=== PATIENT | male | born 1960 | race Caucasian/White ===

== ENCOUNTER 2017-06-18 05:39 | Emergency (ER) | payer OTHER ==
[~2017-06-18] VITALS: Ht 185.4 cm; Wt 83.9 kg
[~2017-06-18 05:39] MED LIST: APRE30TA2 PO; IBUP200C76 PO
--- NOTE | 2017-06-18 05:50 | NUR ---
DR. DENNIS AT BEDSIDE FOR MSE.
--- NOTE | 2017-06-18 05:58 | NUR ---
Patient discharged to home in stable conditon. Written and verbal after care instructions given. Patient verbalizes understanding of instructions. PATIENT LEFT WITH STABLE GAIT.
[2017-06-18 05:59] VITALS: BP 130/78
== END 2017-06-18 06:00 | disposition home or self-care (01) ==
LOC: ER 05:46
DX: J02.9 Acute pharyngitis, unspecified (principal); Z79.899 Other long term (current) drug therapy
CPT/HCPCS: 99283; A4663

== ENCOUNTER 2018-02-26 19:31 | Emergency (ER) | payer OTHER ==
[~2018-02-26] VITALS: Ht 185.4 cm; Wt 85.3 kg
--- NOTE | 2018-02-26 19:45 | NUR ---
Pt provided urine sample, sent to lab.
--- NOTE | 2018-02-26 19:46 | NUR ---
Dr. Dale at bedside for MSE.
[2018-02-26 19:53] LABS: *BILIRUBIN,URIN NEGATIVE (NEGATIVE); *BLOOD, URINE NEGATIVE (NEGATIVE); *CLARITY,URINE CLEAR (CLEAR); *COLOR,URINE YELLOW (YELLOW); *KETONES,URINE NEGATIVE (NEGATIVE); *PROTEIN,URINE NEGATIVE (NEGATIVE); *UROBILINOGEN,URINE 0.2 E.U./dl (NORMAL); LEUKOCYTE ESTERASE ,URINE NEGATIVE (NEGATIVE); NITRITE, URINE NEGATIVE (NEGATIVE); PH,URINE 5.5 (5.0-8.0); UGLUCOSE NEGATIVE (NEGATIVE)
[2018-02-26 19:59] LABS: MUCUS,URINE FEW /LPF (0-FEW); WBC,URINE 0-3 /HPF (0-3)
[2018-02-26] MEDS ORDERED: AZITHROMYCIN 250 MG TABLET ONE (20:15)
[2018-02-26] MEDS ORDERED: ONDANSETRON ODT 4 MG TAB.RAPDIS SL ONE (20:15)
[2018-02-26] MEDS ORDERED: CEFTRIAXONE 500 MG VIAL IM ONE (20:15)
[2018-02-26] MEDS ORDERED: AZITHROMYCIN 250 MG TABLET PO ONE (20:15)
[2018-02-26] MEDS ORDERED: CEFTRIAXONE 500 MG VIAL ONE (20:15)
[2018-02-26] MEDS ORDERED: LIDOCAINE 1%-EPI 1:100,000 20 ML VIAL ONE (20:16)
[2018-02-26] MEDS ORDERED: ONDANSETRON ODT 4 MG TAB.RAPDIS ONE (20:16)
--- NOTE | 2018-02-26 20:23 | NUR ---
Patient discharged to home in stable conditon. Written and verbal after care instructions given. Patient verbalizes understanding of instructions. Pt ambulated out of ER with steady gait, no acute signs of distress, VSS, all belongings taken.
[2018-02-26 20:24] VITALS: BP 110/79
== END 2018-02-26 20:25 | disposition home or self-care (01) ==
LOC: ER 19:33
DX: N48.89 Other specified disorders of penis (principal); Z79.1 Long term (current) use of non-steroidal anti-inflammatories (NSAID); Z79.899 Other long term (current) drug therapy
CPT/HCPCS: 87086; A4663; J0696; J3490; Q0144; Q0162

== ENCOUNTER 2018-11-09 22:02 | Emergency (ER) | payer OTHER ==
[~2018-11-09] VITALS: Ht 177.8 cm; Wt 82.6 kg
[~2018-11-09 22:02] MED LIST changes: +IBUP-2413 PO; -IBUP200C76 PO
--- NOTE | 2018-11-09 23:04 | NUR ---
Pt bib self, A/0x4 and is able to verbalize complaints. Pt started having pain digit II of LLE. C/o pain PS 05/07. Pt ADL's affected due to the pain/swelling. Skin of digit II LLE is intact no tear, just red and some inflammation.
--- NOTE | 2018-11-09 23:39 | NUR ---
Xray at bedside.
[2018-11-10] MEDS ORDERED: MUPIROCIN 2% OINT 22 GM TUBE ONE (00:08)
[2018-11-10] MEDS ORDERED: MUPIROCIN 2% OINT 22 GM TUBE TP ONE (00:15)
--- NOTE | 2018-11-10 00:24 | NUR ---
Patient discharged to home in stable conditon. Written and verbal after care instructions given. Patient verbalizes understanding of instructions. Pt ambulated out of ER in steady gait. All belongings with pt. VS. NAD noted.
[2018-11-10 00:26] VITALS: BP 110/70
== END 2018-11-10 00:27 | disposition home or self-care (01) ==
LOC: ER 22:02
DX: L03.032 Cellulitis of left toe (principal); Z79.1 Long term (current) use of non-steroidal anti-inflammatories (NSAID); Z79.899 Other long term (current) drug therapy
CPT/HCPCS: 73660; A4663

== ENCOUNTER 2019-07-10 05:24 | Emergency (ER) | payer OTHER ==
[~2019-07-10] VITALS: Ht 185.4 cm; Wt 82.6 kg
--- NOTE | 2019-07-10 05:55 | NUR ---
PT WAS AMBULATORY W/ STABLE GAIT ABLE TO VOID FREELY AND PROVIDE URINE SAMPLE [employer] AT BEDSIDE AFTERWARDS
[2019-07-10 06:33] LABS: *BILIRUBIN,URIN NEGATIVE (NEGATIVE); *BLOOD, URINE NEGATIVE (NEGATIVE); *CLARITY,URINE CLEAR (CLEAR); *COLOR,URINE DARK YELLOW (YELLOW); *KETONES,URINE NEGATIVE (NEGATIVE); *UROBILINOGEN,URINE 0.2 E.U./dl (NORMAL); LEUKOCYTE ESTERASE ,URINE NEGATIVE (NEGATIVE); NITRITE, URINE POSITIVE (NEGATIVE); UGLUCOSE NEGATIVE (NEGATIVE)
[2019-07-10 06:45] LABS: RBC,URINE 0-3 /HPF (0-3); SQUAMOUS EPITHELIAL CELL,UR NONE SEEN /HPF (NONE SEEN); WBC,URINE 0-3 /HPF (0-3)
[2019-07-10 06:46] LABS: BACTERIA,URINE NONE SEEN /HPF (NONE SEEN)
--- NOTE | 2019-07-10 06:56 | NUR ---
Patient discharged to home in stable conditon. Written and verbal after care instructions given. Patient verbalizes understanding of instructions. AMBULATORY W/ STABLE GAIT ALL BELONGINGS W/ PT
[2019-07-10 06:57] VITALS: BP 125/86
== END 2019-07-10 06:58 | disposition home or self-care (01) ==
LOC: ER 05:26
DX: R30.0 Dysuria (principal); R05 Cough; J02.9 Acute pharyngitis, unspecified; J34.89 Other specified disorders of nose and nasal sinuses; Z79.1 Long term (current) use of non-steroidal anti-inflammatories (NSAID); Z79.899 Other long term (current) drug therapy
CPT/HCPCS: 71045; 87086

== ENCOUNTER 2019-08-14 20:25 | Emergency (ER) | payer OTHER ==
[~2019-08-14] VITALS: Ht 185.4 cm; Wt 82.1 kg
--- NOTE | 2019-08-14 20:35 | NUR ---
Patient arrived at the ER with chief complaint of multiple rashes on his back, jade. upper arm and right posterior thigh x 5days. Per patient he stayed in a hotel last Thursday and notice the rashes on Thursday. Rashes are reddened and raised in appearance. Patient c/o of itching on affected area. Had used Calamine lotion which was effective.
--- NOTE | 2019-08-14 21:00 | NUR ---
Dr. Blackwell on bedside for MSE.
--- NOTE | 2019-08-14 21:15 | NUR ---
Patient discharged to home in stable conditon. Written and verbal after care instructions given. Patient verbalizes understanding of instructions. Pt ambulated out of the ER with steady gait. All belongings with pt.
[2019-08-14 21:22] VITALS: BP 109/69
== END 2019-08-14 21:15 | disposition home or self-care (01) ==
LOC: ER 20:26
DX: S30.860A Insect bite (nonvenomous) of lower back and pelvis, initial encounter (principal); Z79.1 Long term (current) use of non-steroidal anti-inflammatories (NSAID); Z79.899 Other long term (current) drug therapy; W57.XXXA Bitten or stung by nonvenomous insect and other nonvenomous arthropods, initial encounter; Y93.89 Activity, other specified; Y92.89 Other specified places as the place of occurrence of the external cause; Y99.8 Other external cause status
CPT/HCPCS: A4663

== ENCOUNTER 2019-08-19 16:12 | Emergency (ER) | payer OTHER ==
[~2019-08-19] VITALS: Ht 185.4 cm; Wt 81.6 kg
--- NOTE | 2019-08-19 16:36 | NUR ---
PATIENT WAS SEEN BY . DC, RX AND FOLLOW UP INSTRUCTIONS GIVEN AND EXPLAINED TO PATIENT WHO STATES SHE UNDERSTANDS ALL INSTRUCTIONS.
== END 2019-08-19 17:48 | disposition home or self-care (01) ==
LOC: ER 16:15
DX: H10.89 Other conjunctivitis (principal); B96.89 Other specified bacterial agents as the cause of diseases classified elsewhere; L03.213 Periorbital cellulitis; Z79.1 Long term (current) use of non-steroidal anti-inflammatories (NSAID)
CPT/HCPCS: A4663

== ENCOUNTER 2019-10-22 04:23 | Emergency (ER) | payer OTHER ==
[~2019-10-22] VITALS: Ht 185.4 cm; Wt 81.6 kg
--- NOTE | 2019-10-22 04:34 | NUR ---
Dr. Simons at bedside for MSE.
[2019-10-22 05:10] VITALS: BP 117/81
== END 2019-10-22 05:10 | disposition home or self-care (01) ==
LOC: ER 04:23
DX: B34.9 Viral infection, unspecified (principal); Z79.1 Long term (current) use of non-steroidal anti-inflammatories (NSAID); Z79.899 Other long term (current) drug therapy
CPT/HCPCS: 87400; A4663

== ENCOUNTER 2022-01-31 05:56 | Emergency (ER) | payer OTHER ==
[~2022-01-31] VITALS: Ht 185.4 cm; Wt 83.5 kg
--- NOTE | 2022-01-31 06:30 | NUR ---
Patient walked into ER c/o dysuria that started last night. Patient is A/Ox4, not in distress.
[2022-01-31 07:06] LABS: HEMATOCRIT 41.9 % (36.7-47.1); MEAN CORPUSCULAR HEMOGLOBIN 31.9 uug (23.8-33.4); MEAN CORPUSCULAR VOLUME 92.7 fL (73.0-96.2); PLATELET COUNT (AUTO) 286 K/uL (152-348)
[2022-01-31 07:08] LABS: POTASSIUM 4.6 mmol/L (3.5-5.1)
[2022-01-31 07:11] LABS: *BILIRUBIN,URIN NEGATIVE (NEGATIVE); *BLOOD, URINE NEGATIVE (NEGATIVE); *CLARITY,URINE CLEAR (CLEAR); *COLOR,URINE YELLOW (YELLOW); *KETONES,URINE NEGATIVE (NEGATIVE); *UROBILINOGEN,URINE 0.2 E.U./dl (NORMAL); LEUKOCYTE ESTERASE ,URINE NEGATIVE (NEGATIVE); UGLUCOSE NEGATIVE (NEGATIVE)
[2022-01-31 07:18] LABS: NITRITE, URINE NEGATIVE (NEGATIVE)
[2022-01-31] MEDS ORDERED: DOXY-326 PO (07:28)
[2022-01-31] MEDS ORDERED: CEFTRIAXONE 500 MG VIAL IM ONE (07:30)
[2022-01-31] MEDS ORDERED: CEFTRIAXONE 500 MG VIAL ONE (07:30)
[2022-01-31] MEDS ORDERED: LIDOCAINE HCL 1% 20 ML VIAL ONE (07:31)
[2022-01-31] MEDS ORDERED: PHEN-704 PO (07:32)
[2022-01-31] MEDS ORDERED: PHEN-705 PO (07:32)
--- NOTE | 2022-01-31 07:38 | NUR ---
PT WAS D/C'd TO HOME. D/C INSTRUCTIONS GIVEN TO THE PT BY DR CHONG.
[2022-01-31 07:39] VITALS: BP 135/79
== END 2022-01-31 07:40 | disposition home or self-care (01) ==
LOC: ER 06:00
DX: R30.0 Dysuria (principal); N34.2 Other urethritis; R03.0 Elevated blood-pressure reading, without diagnosis of hypertension
CPT/HCPCS: 36415; 80048; 81003; 85025; 87086; 96372; 99283; J0696; J3490; A4663

== ENCOUNTER 2022-03-16 14:02 | Emergency (ER) | payer OTHER ==
[~2022-03-16] VITALS: Ht 185.4 cm; Wt 83.5 kg
[~2022-03-16 14:02] MED LIST changes: +DOXY-326 PO; +PHEN-704 PO; +PHEN-705 PO
--- NOTE | 2022-03-16 15:17 | NUR ---
Dr Mcclendon at the bedside for MSE.
[2022-03-16] MEDS ORDERED: PRED20TA PO (15:51)
[2022-03-16] MEDS ORDERED: HYDR-501 PO (15:51)
[2022-03-16 16:05] VITALS: BP 116/82
--- NOTE | 2022-03-16 16:05 | NUR ---
Patient discharged to home in stable condition. Written and verbal after care instructions given. Patient verbalizes understanding of instructions. Stressed follow up or return to ER for worsening s/s.
== END 2022-03-16 16:06 | disposition home or self-care (01) ==
LOC: ER 14:03
DX: R21 Rash and other nonspecific skin eruption (principal); L40.50 Arthropathic psoriasis, unspecified
CPT/HCPCS: A4663

== ENCOUNTER 2022-08-22 20:52 | Emergency (ER) | payer OTHER ==
[~2022-08-22] VITALS: Ht 185.4 cm; Wt 80.7 kg
[~2022-08-22 20:52] MED LIST changes: -DOXY-326 PO; +HYDR-501 PO; -IBUP-2413 PO; -PHEN-704 PO; -PHEN-705 PO; +PRED20TA PO
[2022-08-22 22:30] LABS: *BILIRUBIN,URIN NEGATIVE (NEGATIVE); *BLOOD, URINE NEGATIVE (NEGATIVE); *CLARITY,URINE CLEAR (CLEAR); *COLOR,URINE YELLOW (YELLOW); *KETONES,URINE NEGATIVE (NEGATIVE); *UROBILINOGEN,URINE 0.2 E.U./dl (NORMAL); LEUKOCYTE ESTERASE ,URINE NEGATIVE (NEGATIVE); NITRITE, URINE NEGATIVE (NEGATIVE); UGLUCOSE NEGATIVE (NEGATIVE)
--- NOTE | 2022-08-22 23:13 | NUR ---
PATIENT PLACED IN ROOM 4B AT THIS TIME.
--- NOTE | 2022-08-22 23:31 | NUR ---
DR RIZO INTO EVAL PATIENT.
[2022-08-22] MEDS ORDERED: ACETAMINOPHEN ES 500 MG TABLET PO ONE (23:45)
[2022-08-22] MEDS ORDERED: ASPIRIN 81 MG TAB.CHEW PO ONE (23:45)
[2022-08-22 23:52] LABS: HEMATOCRIT 40.5 % (36.7-47.1); MEAN CORPUSCULAR VOLUME 91.1 fL (73.0-96.2); PLATELET COUNT (AUTO) 318 K/uL (152-348)
[2022-08-22] MEDS ORDERED: ACETAMINOPHEN ES 500 MG TABLET ONE (23:56)
[2022-08-22] MEDS ORDERED: ASPIRIN 81 MG TAB.CHEW ONE (23:56)
[2022-08-23 00:04] LABS: CARBON DIOXIDE 26 mmol/L (21-32); CHLORIDE 99 mmol/L (98-107); CREATININE 1.2 mg/dL (0.6-1.3); GLUCOSE 116 mg/dL (74-106); POTASSIUM 4.3 mmol/L (3.5-5.1); UREA NITROGEN, BLOOD 18 mg/dL (7-18)
[2022-08-23 00:17] LABS: ALANINE AMINOTRANSFERASE 34 U/L (16-63); ALKALINE PHOSPHATASE 127 U/L (50-136); ASPARTATE AMINOTRANSFERASE 27 U/L (15-37); BILIRUBIN,DIRECT 0.1 mg/dL (0.0-0.2); BILIRUBIN,TOTAL 0.3 mg/dL (0.2-1.0); TOTAL PROTEIN, SERUM 7.3 g/dL (6.4-8.2)
[2022-08-23 03:07] VITALS: BP 126/75
== END 2022-08-23 03:05 | disposition home or self-care (01) ==
LOC: ER 20:54
DX: J40 Bronchitis, not specified as acute or chronic (principal); R50.9 Fever, unspecified; Z20.822 Contact with and (suspected) exposure to COVID-19; R07.89 Other chest pain; L40.50 Arthropathic psoriasis, unspecified; Z79.899 Other long term (current) drug therapy
CPT/HCPCS: 36415; 71045; 84484; 85025; 87400; 93005; A4663; A9150

== ENCOUNTER 2024-06-26 09:05 | Emergency (ER) | payer OTHER ==
[~2024-06-26] VITALS: Ht 188 cm; Wt 84.4 kg
[2024-06-26] MEDS ORDERED: CEPH500C2 PO (09:53)
[2024-06-26 10:09] VITALS: BP 128/80; O2SAT 99
== END 2024-06-26 10:11 | disposition home or self-care (01) ==
LOC: ER 09:07
DX: L03.116 Cellulitis of left lower limb (principal); Z79.891 Long term (current) use of opiate analgesic; Z98.890 Other specified postprocedural states; Z79.899 Other long term (current) drug therapy
CPT/HCPCS: A4606; A4663

== ENCOUNTER 2025-06-17 10:42 | Emergency (ER) | payer OTHER ==
[~2025-06-17] VITALS: Ht 185.4 cm; Wt 84.8 kg
[~2025-06-17 10:42] MED LIST changes: +CEPH500C2 PO
[2025-06-17 10:46] VITALS: BP 127/95
[2025-06-17] MEDS ORDERED: NAPROXEN 500 MG TABLET ONE (11:20)
[2025-06-17] MEDS: NAPROXEN 500 MG TABLET PO ONE (11:22)
[2025-06-17] MEDS ORDERED: OXYC-128 PO (11:29)
[2025-06-17 11:44] VITALS: BP 127/95; TEMP 98.5; O2SAT 99
== END 2025-06-17 11:44 | disposition home or self-care (01) ==
LOC: ER 10:44
DX: R07.89 Other chest pain (principal); M54.2 Cervicalgia; M25.512 Pain in left shoulder; Z79.52 Long term (current) use of systemic steroids; Z88.7 Allergy status to serum and vaccine; Z87.39 Personal history of other diseases of the musculoskeletal system and connective tissue; Z87.09 Personal history of other diseases of the respiratory system
CPT/HCPCS: A4606; A4663

== ENCOUNTER 2025-09-17 11:58 | Emergency (ER) | payer OTHER ==
[~2025-09-17] VITALS: Ht 185.4 cm; Wt 84.8 kg
[~2025-09-17 11:58] MED LIST changes: -APRE30TA2 PO; +APRE30TA5 PO; +OXYC-128 PO
[2025-09-17 12:02] VITALS: BP 139/86
[2025-09-17] MEDS ORDERED: ACETAMINOPHEN 500 MG TABLET ONE (12:46)
[2025-09-17] MEDS ORDERED: IBUPROFEN 600 MG TABLET ONE (12:46)
[2025-09-17] MEDS: IBUPROFEN 600 MG TABLET PO ONE (12:49)
[2025-09-17] MEDS: ACETAMINOPHEN 500 MG TABLET PO ONE (12:49)
[2025-09-17 12:53] LABS: PLATELET COUNT (AUTO) 255 K/uL (152-348); RED BLOOD CELL COUNT(AUTO) 4.60 MIL/uL (4.06-5.63); RED CELL DISTRIBUTION WIDTH 13.2 % (12.1-16.2); WHITE BLOOD COUNT (AUTO) 7.0 K/uL (3.6-10.2)
[2025-09-17 13:08] LABS: ASPARTATE AMINOTRANSFERASE 14 U/L (15-37); CREATININE 0.9 mg/dL (0.6-1.3); SODIUM SERUM 140 mmol/L (136-145); TOTAL PROTEIN, SERUM 7.5 g/dL (6.4-8.2); UREA NITROGEN, BLOOD 15 mg/dL (7-18)
[2025-09-17] MEDS ORDERED: OXYC-128 PO (13:46)
[2025-09-17 13:52] VITALS: BP 139/86; TEMP 98.5; O2SAT 98
== END 2025-09-17 13:53 | disposition home or self-care (01) ==
LOC: ER 12:02
DX: M25.512 Pain in left shoulder (principal); R91.1 Solitary pulmonary nodule; C19 Malignant neoplasm of rectosigmoid junction; R94.31 Abnormal electrocardiogram [ECG] [EKG]; L40.50 Arthropathic psoriasis, unspecified; R06.02 Shortness of breath; Z79.52 Long term (current) use of systemic steroids; Z88.7 Allergy status to serum and vaccine; Z98.890 Other specified postprocedural states; Z86.2 Personal history of diseases of the blood and blood-forming organs and certain disorders involving the immune mechanism
CPT/HCPCS: 36415; 71045; 73020; 84484; 85025; 85651; 85730; A4606; A4663; A9150